=== PATIENT | male | born 1960 | race Caucasian/White ===

== ENCOUNTER → 2019-09-20 | Outpatient (CLI) | payer BC ==
[~2019-09-20] MED LIST: MESA250ER; METO100ER
[2019-09-20 18:13] LABS: BASOPHILS ABSOLUTE AUTO 0.05 K/mm3 (0.00-0.23); BASOPHILS PERCENT AUTO 1 % (0-2); EOSINOPHILS ABSOLUTE AUTO 0.09 K/mm3 (0.00-0.68); EOSINOPHILS PERCENT AUTO 1 % (0-6); Hematocrit 40.9 % (37.0-53.0); Hemoglobin 14.4 g/dL (13.5-17.5); IMMATURE GRAN ABSOLUTE AUTO 0.03 K/mm3 (0.00-0.10); IMMATURE GRAN PERCENT AUTO 0 % (0-1); LYMPHOCYTES ABSOLUTE AUTO 0.91 K/mm3 (0.84-5.20); LYMPHOCYTES PERCENT AUTO 13 % (21-46); MONOCYTES ABSOLUTE AUTO 0.66 K/mm3 (0.16-1.47); MONOCYTES PERCENT AUTO 10 % (4-13); Mean Corpuscular HGB 32.7 pg (26.0-34.0); Mean Corpuscular HGB Conc 35.2 g/dL (31.5-36.5); Mean Corpuscular Volume 93 fL (80-100); NEUTROPHILS ABSOLUTE AUTO 5.22 K/mm3 (1.96-9.15); NEUTROPHILS PERCENT AUTO 75 % (41-73); RDW Coefficient Variation 13.4 % (11.7-14.2); RDW Standard Deviation 45.8 fL (35.1-46.3); Red Blood Cell Count 4.41 M/mm3 (4.30-5.90); White Blood Cell Count 6.96 K/mm3 (4.00-11.30)
[2019-09-20 18:26] LABS: Mean Platelet Volume 10.7 fL (9.1-12.4); Platelet Count 123 K/mm3 (150-400)
[2019-09-20 18:54] LABS: Alanine Aminotransfer (ALT/SGP 31 U/L (12-78); Albumin/Globulin Ratio 1.1 (0.8-1.8); Alk Phos 70 U/L (40-126); Anion Gap 19 mmol/L (6-16); Aspartate Aminotrans (AST/SGOT 31 U/L (12-37); Bilirubin, Total 1.2 mg/dL (0.1-1.0); Blood Urea Nitrogen 9 mg/dL (8-24); Bun/Creatinine Ratio 8.8 (12.0-20.0); CO2, Blood 21 mmol/L (21-32); Calcium, Blood 9.3 mg/dL (8.5-10.1); Chloride, Blood 101 mmol/L (98-108); Creatinine, Blood 1.02 mg/dL (0.60-1.20); Globulin, Blood 3.5 g/dL (2.2-4.0); Glomerular Filtration Rate >60 (60-); Glucose, Blood 149 mg/dL (70-99); Magnesium, Blood 1.4 mg/dL (1.6-2.4); Potassium, Blood 3.8 mmol/L (3.5-5.5); Sodium, Blood 141 mmol/L (136-145); Total Protein, Blood 7.5 g/dL (6.4-8.2)
== END | disposition home or self-care (01) ==
LOC: LAB SHORT 18:09 → LAB EV 18:09
PROVIDERS: Physician Assistant
DX: R11.2 Nausea with vomiting, unspecified (principal)
CPT/HCPCS: 80053; 82607; 83690; 83735; 84425; 84443; 85025

== ENCOUNTER 2021-05-06 11:13 | Inpatient (IN) | payer BC ==
[~2021-05-06] VITALS: Ht 185.4 cm; Wt 100.5 kg
[~2021-05-06 11:13] MED LIST changes: -METO100ER; +METO100ER PO
[2021-05-06 12:10] LABS: BASOPHILS ABSOLUTE AUTO 0.03 K/mm3 (0.00-0.23); BASOPHILS PERCENT AUTO 0 % (0-2); EOSINOPHILS ABSOLUTE AUTO 0.01 K/mm3 (0.00-0.68); EOSINOPHILS PERCENT AUTO 0 % (0-6); Hematocrit 43.3 % (37.0-53.0); IMMATURE GRAN ABSOLUTE AUTO 0.03 K/mm3 (0.00-0.10); IMMATURE GRAN PERCENT AUTO 0 % (0-1); LYMPHOCYTES ABSOLUTE AUTO 0.81 K/mm3 (0.84-5.20); LYMPHOCYTES PERCENT AUTO 10 % (21-46); MONOCYTES ABSOLUTE AUTO 0.65 K/mm3 (0.16-1.47); MONOCYTES PERCENT AUTO 8 % (4-13); Mean Corpuscular HGB 33.9 pg (26.0-34.0); Mean Corpuscular HGB Conc 34.6 g/dL (31.5-36.5); Mean Corpuscular Volume 98 fL (80-100); Mean Platelet Volume 12.7 fL (9.1-12.4); NEUTROPHILS PERCENT AUTO 81 % (41-73); Platelet Count 55 K/mm3 (150-400); RDW Coefficient Variation 13.8 % (11.7-14.2); RDW Standard Deviation 49.3 fL (35.1-46.3); Red Blood Cell Count 4.43 M/mm3 (4.30-5.90); White Blood Cell Count 7.93 K/mm3 (4.00-11.30)
[2021-05-06 12:22] LABS: Source, Urine Clean Catch
[2021-05-06 12:25] LABS: Blood, Urine 2+ (Neg); Glucose Qualitative, Urine Neg (Neg); Ketones, Urine 4+ (Neg); Leukocyte Esterase, Urine 1+ (Neg); Nitrite, Urine Neg (Neg); Protein, Urine 3+ (Neg); Urobilinogen, Urine 2+ (Normal)
[2021-05-06 12:29] LABS: Alanine Aminotransfer (ALT/SGP 94 U/L (12-78); Albumin, Blood 4.2 g/dL (3.4-5.0); Albumin/Globulin Ratio 1.1 (0.8-1.8); Alk Phos 89 U/L (50-136); Anion Gap 13 mmol/L (6-16); Aspartate Aminotrans (AST/SGOT 118 U/L (12-37); Bilirubin, Total 3.2 mg/dL (0.1-1.0); Blood Urea Nitrogen 11 mg/dL (8-24); Bun/Creatinine Ratio 17.9 (12.0-20.0); CO2, Blood 23 mmol/L (21-32); Calcium, Blood 9.9 mg/dL (8.5-10.1); Chloride, Blood 102 mmol/L (98-108); Creatinine, Blood 0.62 mg/dL (0.60-1.20); Globulin, Blood 3.8 g/dL (2.2-4.0); Glomerular Filtration Rate >60 (60-); Glucose, Blood 131 mg/dL (70-99); Potassium, Blood 3.8 mmol/L (3.5-5.5); Sodium, Blood 138 mmol/L (136-145)
[2021-05-06 12:40] LABS: Appearance, Urine Hazy (Clear); Bilirubin, Urine 1+ (Neg); Color, Urine Amber (P-Yellow)
[2021-05-06 12:41] LABS: Mucus Mod (0-Heavy)
[2021-05-06 12:43] LABS: Bacteria Few /hpf; Red Blood Cells, Urine 0-2 /hpf (0-2); Squamous Epithelial Cells Rare /hpf (Few)
[2021-05-06 12:43] LABS: Ethanol (Alcohol), Blood, Med <3 mg/dL
[2021-05-06 12:45] LABS: Phosphorus, Blood 2.7 mg/dL (2.5-4.9)
[2021-05-06 14:40] LABS: Influenza A, PCR NEGATIVE (NEGATIVE); Influenza B, PCR NEGATIVE (NEGATIVE); Resp Syncytial Virus, PCR NEGATIVE (NEGATIVE); SARS-Cov-2 (COVID-19) PCR, MMC NEGATIVE (NEGATIVE)
[2021-05-06] MEDS ORDERED: TRAZ50 PO (16:22)
[2021-05-06] MEDS ORDERED: MESALAMINE PO (16:27)
--- NOTE | 2021-05-06 18:56 | NUR ---
SHIFT SUMMARY SINCE ARRIVING FROM THE ED, PT CONDITION HAS REMAIN UNCHANGED. PT CONTINUES TO HAVE SIGNIFICANT TREMORS, IS A&O X4. PT WILL NEED CONTINUED EDUCATION ON CURRENT ILLNESS AND TREATMENT.
--- NOTE | 2021-05-06 22:29 | NUR ---
PATIENT CIWA 13 UPON RETURNING TO ROOM WITH MEDICATION PATIENT EXPRESSED HE NEEDED TO GO UPSTAIRS INTO THE SPARE BEDROOM IN [place], MORE AGITATION, ANXIETY AND CLOUDY SENSORIUM NOTED. CIWA NOW WOULD BE 18
--- NOTE | 2021-05-07 00:31 | NUR ---
PATIENT AT BEGINNING OF SHIFT WAS ALERT AND ORIENTATED X 4 AROUND 2300 PATIENT BEGAN TO THINK HE WAS EITHER IN [place] OR AT HOME AND NEEDED TO GO UP TO HIS UPSTAIRS BEDROOM, GETTING ANXIOUS REPEATED ATTEMPTS TO GET OUT OF BED, TREMORS, UNABLE TO GIVE CORRECT YEAR "2015" TALKING TO HIMSELF, PULLING AT TUBING STATING, " IM GONNA RIP MY IV OUT AND BLEED", STARTLES EASILY, AGITATION WITH CARE, TOTAL OF ATIVAN 10MG IVP GIVEN UPTO 0023 THIS EVENING, WILL CONTINUE TO MONITOR CIWA, CURRENTLY SCORES IS 11 BUT IS REDIRECTABLE AND LAYING QUIETLY TALKING TO HIMSELF, PRIOR TO THIS HE RECEIVED ATIVAN PER ORDER Q15, WILL HOLD RIGHT NOW AND REASSESS Q1HR. REMELTER AWARE OF INCREASED NEEDS AND CONFUSION, WAS CALLED AND ORDER FOR RESTRAINTS WERE GIVEN AND APPLIED.
--- NOTE | 2021-05-07 02:02 | NUR ---
PATIENT CIWA 17, HE IS SEEING THINGS AND TALKING TO PEOPLE WHO ARE NOT IN THE ROOM, " THE TOYS ARE FROZEN I CANT GET THEM, WAS NICE RIDE YOU GAVE ME OUT IN THE DUNES TODAY" WHEN ASKED WHERE HE WAS STATED HE WAS [place] [address] FROM [facility] AND IT WAS JUNE 21, 2021. TREMORS NOTED, ANXIETY AND AGITATION. ALSO EYES ARE RED WITH GREEN DISCHARGE BILATERALLY CLEANED WITH A WARM CLOTH AND WILL CONTINUE TO MONITOR.
[2021-05-07 03:59] LABS: BASOPHILS ABSOLUTE AUTO 0.03 K/mm3 (0.00-0.23); BASOPHILS PERCENT AUTO 1 % (0-2); EOSINOPHILS ABSOLUTE AUTO 0.01 K/mm3 (0.00-0.68); EOSINOPHILS PERCENT AUTO 0 % (0-6); Hematocrit 37.8 % (37.0-53.0); Hemoglobin 12.8 g/dL (13.5-17.5); IMMATURE GRAN ABSOLUTE AUTO 0.03 K/mm3 (0.00-0.10); IMMATURE GRAN PERCENT AUTO 1 % (0-1); LYMPHOCYTES ABSOLUTE AUTO 1.09 K/mm3 (0.84-5.20); LYMPHOCYTES PERCENT AUTO 17 % (21-46); MONOCYTES ABSOLUTE AUTO 0.94 K/mm3 (0.16-1.47); MONOCYTES PERCENT AUTO 15 % (4-13); Mean Corpuscular HGB 33.9 pg (26.0-34.0); Mean Corpuscular HGB Conc 33.9 g/dL (31.5-36.5); Mean Corpuscular Volume 100 fL (80-100); Mean Platelet Volume 12.7 fL (9.1-12.4); NEUTROPHILS ABSOLUTE AUTO 4.39 K/mm3 (1.96-9.15); NEUTROPHILS PERCENT AUTO 68 % (41-73); RDW Standard Deviation 51.8 fL (35.1-46.3); Red Blood Cell Count 3.78 M/mm3 (4.30-5.90); White Blood Cell Count 6.49 K/mm3 (4.00-11.30)
--- NOTE | 2021-05-07 04:00 | NUR ---
PATIENT HAVING AUDITORY AND VISUAL HALLUCINATIONS, TALKING TO PEOPLE IN THE ROOM, THINKING THERE IS A GUN ON THE TABLE. TREMORS HAVE LESSON BUT STARTLES EASLIY, ANXIOUS AND AGITATION UNAWARE OF WHERE HE IS ALERT TO SELF AND UNAWARE OF MONTH, YEAR CORRECT 2020. KARINA 11 GAVE 2MG ATIVAN PER ORDER
[2021-05-07 04:11] LABS: Platelet Count 31 K/mm3 (150-400)
[2021-05-07 04:21] LABS: Alanine Aminotransfer (ALT/SGP 67 U/L (12-78); Albumin, Blood 3.5 g/dL (3.4-5.0); Albumin/Globulin Ratio 1.1 (0.8-1.8); Alk Phos 72 U/L (50-136); Anion Gap 12 mmol/L (6-16); Aspartate Aminotrans (AST/SGOT 78 U/L (12-37); Bilirubin, Direct 0.6 mg/dL (0.0-0.3); Bilirubin, Indirect 1.4 mg/dL (0.1-0.7); Blood Urea Nitrogen 14 mg/dL (8-24); Bun/Creatinine Ratio 20.4 (12.0-20.0); CO2, Blood 22 mmol/L (21-32); Calcium, Blood 8.6 mg/dL (8.5-10.1); Chloride, Blood 109 mmol/L (98-108); Creatinine, Blood 0.69 mg/dL (0.60-1.20); Globulin, Blood 3.3 g/dL (2.2-4.0); Glomerular Filtration Rate >60 (60-); Glucose, Blood 81 mg/dL (70-99); Magnesium, Blood 1.5 mg/dL (1.6-2.4); Phosphorus, Blood 2.2 mg/dL (2.5-4.9); Potassium, Blood 3.2 mmol/L (3.5-5.5); Sodium, Blood 143 mmol/L (136-145); Total Protein, Blood 6.8 g/dL (6.4-8.2); Troponin I <0.015 ng/mL (0.000-0.040)
--- NOTE | 2021-05-07 05:25 | NUR ---
CIWA 15 2MG IVP ATIVAN GIVEN, PATIENT IS TREMORS, DIAPHORETIC, ITCHING FIDGETING ANXIOUS, WHEN ASKED IF HE IS SEEING PEOPLE OR HEARING THINGS STATES NO, WHEN ASKED WHO IS IN THE ROOM WITH US, " LUIZA AND CHIPPPPER" TALKING TO PEOPLE IN THE ROOM, WAS ALERT AND ORIENTATED TO SELF, PLACE, AND SITUATION - TO TIME.
--- NOTE | 2021-05-07 06:09 | NUR ---
PATIENT STATUS CHANGED TO PCU TELE, TELE BOX APPLIED. PATIENT ST 114, TEMPERATURE IS CURRENTLY 98.2 F, 36.8 C, WINIFRED HUGGER STILL IN PLACED.
--- NOTE | 2021-05-07 09:00 | NUR ---
CARE ASSUMPTION THIS RN ASSUMED CARE FORM GAEL MAKI AT 0700. PATIENT IS A/OX4 WITH HALLUCINATIONS. PATIENT STATED SEEING A WHALE AND FISH IN HIS ROOM. CIWA SCORE IS A 10 THIS AM. PATIENT REPORTS NO CHEST PAIN, PAIN, OR SOB. VSS. SPO2 >90% ON RA. TELE. SEIZURE PERCAUTIONS IN PLACE. CALL LIGHT WITHIN REACH. WILL CONTINUE TO MONITOR AND PROVIDE CARE.
[2021-05-07 15:13] LABS: BASOPHILS ABSOLUTE AUTO 0.04 K/mm3 (0.00-0.23); BASOPHILS PERCENT AUTO 1 % (0-2); EOSINOPHILS ABSOLUTE AUTO 0.01 K/mm3 (0.00-0.68); EOSINOPHILS PERCENT AUTO 0 % (0-6); Hematocrit 37.6 % (37.0-53.0); IMMATURE GRAN ABSOLUTE AUTO 0.02 K/mm3 (0.00-0.10); IMMATURE GRAN PERCENT AUTO 0 % (0-1); LYMPHOCYTES ABSOLUTE AUTO 0.74 K/mm3 (0.84-5.20); LYMPHOCYTES PERCENT AUTO 14 % (21-46); MONOCYTES ABSOLUTE AUTO 0.66 K/mm3 (0.16-1.47); MONOCYTES PERCENT AUTO 12 % (4-13); Mean Corpuscular HGB 34.3 pg (26.0-34.0); Mean Corpuscular HGB Conc 34.6 g/dL (31.5-36.5); Mean Corpuscular Volume 99 fL (80-100); Mean Platelet Volume 11.9 fL (9.1-12.4); NEUTROPHILS ABSOLUTE AUTO 3.88 K/mm3 (1.96-9.15); NEUTROPHILS PERCENT AUTO 73 % (41-73); RDW Coefficient Variation 13.9 % (11.7-14.2); RDW Standard Deviation 51.1 fL (35.1-46.3); Red Blood Cell Count 3.79 M/mm3 (4.30-5.90); White Blood Cell Count 5.35 K/mm3 (4.00-11.30)
[2021-05-07 15:25] LABS: Platelet Count 34 K/mm3 (150-400)
--- NOTE | 2021-05-07 15:27 | NUR ---
CRITICAL VALUE SANDRA, FROM LAB, CALLED AT 1525 TO NOTIFY THIS RN OF A CRITICAL PLT VALUE AT 34. THIS RN NOTIFED HER ZOO DIRECTOR AT 1526.
--- NOTE | 2021-05-07 16:24 | NUR ---
ASSISTED PATIENT WITH URINAL TO VOID. 100 ML OF CLAYTON COLORED URINE VOIDED. MINIMAL ASSIST NEEDED. ATTENDS DRY.
--- NOTE | 2021-05-07 18:07 | NUR ---
SHIFT SUMMARY PATIENT IS A/OX4. VSS. SPO2 >90% ON RA. PATIENT HAS HAD HALLUNCINATIONS THROUGHOUT THE DAY, MAINLY SEEING FISH OR THINKING THAT THE IV POLE IS HIS UNTIL REORIENTATED. CIWA 8-11 THROUGHT THE DAY. PATIENT ATE LUNCH BUT IS NOT EATING DINNER UNTIL AFTER ULTRASOUND. PATIENT HAS SLPET OFF AND ON THROUGHOUT THE DAY. AT 1300 THIS RN TOOK A BREAK FROM THE RESTRAINTS FROM 1300 UNTIL 1700 WHEN PATIENT BEGAN TO PULL AT THE IV. PATIENT IN BILATERAL SOFT WRIST RESTRAINTS. CALL LIGHT WITHIN REACH. WILL CONTINUE MONITOR AND PROVIDE CARE UNTIL HAND OFF WITH NEXT SHIFT.
--- NOTE | 2021-05-07 22:54 | NUR ---
PATIENT CIWA 15 " CAN YOU HELP ME WITH MY CLOTHES I'M LAYING UNDERE [employer] DOGS RIGHT NOW." UNAWARE IN THE HOSPITAL
[2021-05-08 04:12] LABS: BASOPHILS ABSOLUTE AUTO 0.04 K/mm3 (0.00-0.23); BASOPHILS PERCENT AUTO 1 % (0-2); EOSINOPHILS ABSOLUTE AUTO 0.07 K/mm3 (0.00-0.68); EOSINOPHILS PERCENT AUTO 1 % (0-6); Hematocrit 37.4 % (37.0-53.0); Hemoglobin 12.8 g/dL (13.5-17.5); IMMATURE GRAN ABSOLUTE AUTO 0.02 K/mm3 (0.00-0.10); IMMATURE GRAN PERCENT AUTO 0 % (0-1); LYMPHOCYTES ABSOLUTE AUTO 1.14 K/mm3 (0.84-5.20); LYMPHOCYTES PERCENT AUTO 21 % (21-46); MONOCYTES ABSOLUTE AUTO 0.66 K/mm3 (0.16-1.47); MONOCYTES PERCENT AUTO 12 % (4-13); Mean Corpuscular HGB Conc 34.2 g/dL (31.5-36.5); Mean Corpuscular Volume 99 fL (80-100); NEUTROPHILS ABSOLUTE AUTO 3.51 K/mm3 (1.96-9.15); NEUTROPHILS PERCENT AUTO 65 % (41-73); RDW Coefficient Variation 13.4 % (11.7-14.2); RDW Standard Deviation 49.1 fL (35.1-46.3); Red Blood Cell Count 3.77 M/mm3 (4.30-5.90); White Blood Cell Count 5.44 K/mm3 (4.00-11.30)
[2021-05-08 04:18] LABS: Mean Platelet Volume 13.5 fL (9.1-12.4); Platelet Count 35 K/mm3 (150-400)
[2021-05-08 04:28] LABS: Alanine Aminotransfer (ALT/SGP 65 U/L (12-78); Albumin, Blood 3.5 g/dL (3.4-5.0); Alk Phos 75 U/L (50-136); Anion Gap 10 mmol/L (6-16); Aspartate Aminotrans (AST/SGOT 78 U/L (12-37); Bilirubin, Total 1.9 mg/dL (0.1-1.0); Blood Urea Nitrogen 11 mg/dL (8-24); Bun/Creatinine Ratio 18.4 (12.0-20.0); CO2, Blood 23 mmol/L (21-32); Chloride, Blood 108 mmol/L (98-108); Globulin, Blood 3.4 g/dL (2.2-4.0); Glomerular Filtration Rate >60 (60-); Glucose, Blood 82 mg/dL (70-99); Phosphorus, Blood 3.1 mg/dL (2.5-4.9); Potassium, Blood 3.3 mmol/L (3.5-5.5); Sodium, Blood 141 mmol/L (136-145); Total Protein, Blood 6.9 g/dL (6.4-8.2)
--- NOTE | 2021-05-08 05:46 | NUR ---
PATIENT WAXES AND WANES WITH MENTATION/ORIENTATION, ABLE TO MAKE NEEDS KNOWN THROUGH CONFUSION, REFER TO ALCOHOL WITHDRAWL CHARTING RANGE 8-19, PATIENT SLEPT FROM [id number] THIS SHIFT, DC'D RFA IV FOR LEAKING, INSERTED NEW 20GAUGE PIV IN LFA RUNNING TKO NS, CRITICAL PLATELET LAB 35 INCREASED FROM LAST VALUE OF 34, TRACKWALKER MADE AWARE, ULTRASOUND COMPLETED AT BEGINNING OF SHIFT OF ABDOMEN AWAITING RESULTS.
--- NOTE | 2021-05-08 10:17 | NUR ---
CARE ASSUMPTION THIS RN ASSUMED CARE OF PATIENT AT 0700 FROM GAEL Mcclain RN. PATIENT IS A/OX4. VSS. SPO2 >90% ON RA. TELE SR. PATIENT IS CALM AND FREE OF RESTRAINTS THIS AM. PATIENT EDUCATED THAT HE CAN NOT PULL AT LINES OR GET UP WITHOUT ASSITANCE. BED ALARM IS ON AND CALL LIGHT WITHIN REACH. PATIENT REPORTS NO PAIN, CHEST PAIN, OR SOB. WILL CONTINUE TO MONITOR AND PROVIDE CARE.
--- NOTE | 2021-05-08 17:41 | NUR ---
SHIFT SUMMARY PATIENT IS A/OX4. CIWA HAS BEEN 1, TREMORS CAN BE FELT. PATIENT WAS A STAND BY ASSIT TO CHAIR AND SAT IN CHAIR FOR A COUPLE HOURS THIS AFTERNOON. PATIENT IS MED STATUS NO TELE. VSS. PATIENT HAS SLEPT OFF AND ON THROUGHOUT THE SHIFT. PATIENT IS FREE OF RESTRAINTS AND HASN'T BEEN AGITATED OR ANXIOUS THIS SHIFT. PATIENT IS BACK IN BED WITH BED IN LOWEST POSITION AND CALL LIGHT WITHIN REACH. WILL CONTINUE TO MONITOR AND PROVIDE CARE UNTIL HAND OFF WITH NEXT SHIFT.
--- NOTE | 2021-05-09 06:15 | NUR ---
PATIENT IS ALERT AND ORIENTATED X 4, ABLE TO MAKE NEEDS KNOWN, CALL LIGHT WITHIN REACH, USES THE URINAL AND CALLS APPROPRIATELY FOR SETUP/ BED ALARM REMAINS IN USE AT ALL TIMES, PATIENT STILL HAS SLIGHT TREMORS, DIFFICULTY WITH FINE MOTOR SKILLS, WEAKNESS WITH AMBULATION, ATE 100% OF HIS DINNER AND TOOK PILLS WHOLE WITH WATER. CIWA SCORE STAYED CONSISTENT 2, NO MEDICATION GIVEN, COMFORT PROVIDED.
[2021-05-09] MEDS ORDERED: Acetaminophen650 M1 PO (11:25)
[2021-05-09] MEDS ORDERED: CHLO25 PO (11:29)
[2021-05-09] MEDS ORDERED: MULVITA PO (11:30)
--- NOTE | 2021-05-09 14:53 | NUR ---
DISCHARGE NOTE PT WAS DISCHARGED VIA PERSONAL VEHICLE WITH FAMILY MEMBER. ALL BELONGINGS WERE IN PT POSSESSION AT TIME OF DISCHARGE. DISCHARGE INSTRUCTIONS WERE DISCUSSED AND WERE IN THE PT'S POSSESSION. PT EXPRESSED SATISFACTION OVER ALL QUESTIONS AND CONCERNS THAT WERE ADDRESSED.
== END 2021-05-09 14:40 | disposition home or self-care (01) | DRG 897 ==
LOC: ER 11:13 → ERHOLD 11:14 → PCU 16:11
PROVIDERS: Emergency Medicine; Internal Medicine; Physician Assistant; ADMIT Family Medicine
DX: F10.239 Alcohol dependence with withdrawal, unspecified (principal); Z20.822 Contact with and (suspected) exposure to COVID-19; F10.229 Alcohol dependence with intoxication, unspecified; R26.81 Unsteadiness on feet; E83.42 Hypomagnesemia; D69.6 Thrombocytopenia, unspecified; E88.81 Metabolic syndrome and other insulin resistance; K75.81 Nonalcoholic steatohepatitis (NASH); R79.89 Other specified abnormal findings of blood chemistry; R53.1 Weakness; I16.0 Hypertensive urgency; R73.9 Hyperglycemia, unspecified; Z71.41 Alcohol abuse counseling and surveillance of alcoholic; Z79.899 Other long term (current) drug therapy; Z98.890 Other specified postprocedural states; Y90.0 Blood alcohol level of less than 20 mg/100 ml
CPT/HCPCS: 0241U; 36415; 70450; 71045; 72125; 76705; 80048; 80053; 81001; 82248; 82947; 83690; 83735; 84100; 84443; 84484; 85025; 86850; 86900; 86901; 87086; 90686; 93005; 93010; 94760; 94762; 96365; 96366; 96375; 96376; 97116; 97161; 97530; 99285-25; A9270; G0008; G0378; G0480; J0360; J2060; J2405; J2765; J3411; J3475; J3480; J7030; J7042

== ENCOUNTER → 2023-07-29 | Outpatient (CLI) | payer OTHER ==
[~2023-07-29] MED LIST changes: +Acetaminophen650 M1 PO; +CHLO25 PO; +MESALAMINE PO; +MULVITA PO; +TRAZ50 PO
[2023-07-29 15:37] LABS: BASOPHILS PERCENT AUTO 1 % (0-2); EOSINOPHILS PERCENT AUTO 1 % (0-6); Hematocrit 43.5 % (37.0-53.0); Hemoglobin 14.9 g/dL (13.5-17.5); IMMATURE GRAN ABSOLUTE AUTO 0.17 K/mm3 (0.00-0.10); IMMATURE GRAN PERCENT AUTO 1 % (0-1); LYMPHOCYTES ABSOLUTE AUTO 3.32 K/mm3 (0.84-5.20); LYMPHOCYTES PERCENT AUTO 26 % (21-46); MONOCYTES ABSOLUTE AUTO 1.31 K/mm3 (0.16-1.47); MONOCYTES PERCENT AUTO 10 % (4-13); Mean Corpuscular HGB 33.3 pg (26.0-34.0); Mean Corpuscular HGB Conc 34.3 g/dL (31.5-36.5); Mean Corpuscular Volume 97 fL (80-100); NEUTROPHILS ABSOLUTE AUTO 7.71 K/mm3 (1.96-9.15); NEUTROPHILS PERCENT AUTO 61 % (41-73); Platelet Count 205 K/mm3 (150-400); RDW Coefficient Variation 13.2 % (11.7-14.2); RDW Standard Deviation 47.2 fL (35.1-46.3); Red Blood Cell Count 4.47 M/mm3 (4.30-5.90); White Blood Cell Count 12.71 K/mm3 (4.00-11.30)
[2023-07-29 15:51] LABS: Albumin, Blood 3.4 g/dL (3.4-5.0); Albumin/Globulin Ratio 0.8 (0.8-1.8); Bilirubin, Total 1.1 mg/dL (0.1-1.0); Bun/Creatinine Ratio 22.2 (12.0-20.0); Calcium, Blood 9.5 mg/dL (8.5-10.1); Creatinine, Blood 1.17 mg/dL (0.60-1.20); Globulin, Blood 4.1 g/dL (2.2-4.0); Potassium, Blood 4.9 mmol/L (3.5-5.5); Total Protein, Blood 7.5 g/dL (6.4-8.2)
[2023-07-30 08:44] LABS: International Normalized Ratio 1.07; Prothrombin Time Results 11.2 Sec (9.7-11.5)
== END ==
LOC: LAB 11:24 → LAB SHORT 11:24
PROVIDERS: Family Medicine
DX: I10 Essential (primary) hypertension (principal); M17.11 Unilateral primary osteoarthritis, right knee; M17.12 Unilateral primary osteoarthritis, left knee
CPT/HCPCS: 80053; 85025; 85610; 85730